=== PATIENT | female | born 1960 | race Caucasian/White ===

== ENCOUNTER 2019-08-31 10:10 | Emergency (ER) | payer BC, SELFPAY ==
[2019-08-31 10:10] VITALS: BP 161/80; PULSE 88; RESP 18; TEMP 36.3; O2SAT 99
--- NOTE | 2019-08-31 10:24 | PC.NURSE ---
As noted in triage, ++ swelling superior to uvula. No swelling to epiglottis.
--- NOTE | 2019-08-31 10:24 | ED.URI ---
HPI - URI/Sore Throat General Chief Complaint: Upper Respiratory Symptoms Stated Complaint: sent from [facility], sore throat, trouble breathing Time Seen by Provider: 08/31/19 10:18 Source: patient Mode of arrival: Ambulatory Limitations: no limitations History of Present Illness HPI Narrative: Patient is 58-year-old female who presents from the walk-in clinic for difficulty breathing sore throat. She says she feels like her mouth is swollen. She actually does have swelling of her uvula she is managing her own secretions she denies any change in her voice. She has had any fever chills or cough. She currently denies any neck discomfort. She denies any tongue swelling she has no history of hypertension not on an ULI-inhibitor she did take naproxen prior to arrival. She overall feels like it's getting worse MD Complaint: sore throat Relieving factors: nothing Related Data Previous Rx's Medication Instructions Recorded nitrofurantoin monohyd/m-cryst 100 mg PO Q12H #10 cap 11/12/16 [Macrobid] phenazopyridine [Pyridium] 200 mg PO TID #10 tab 11/12/16 phenazopyridine [Pyridium] 200 mg PO TID #10 tab 11/26/16 sulfamethoxazole-trimethoprim 0 PO BID #20 tab 11/26/16 prednisone 40 mg PO DAILY #10 tab 08/31/19 Allergies Allergy/AdvReac Type Severity Reaction Status Date / Time codeine [CODEINE] AdvReac Severe NAUSEA/VOMI Verified 08/31/19 11:54 TING Review of Systems Review of Systems ROS Unobtainable: All systems reviewed & are unremarkable except as noted in HPI and below Constitutional Constitutional: Denies chills, Denies fever(s), Denies lethargy and Denies weakness Eyes Eyes: Denies change in vision, Denies eye discharge, Denies irritation and Denies loss of vision ENT Ears, Nose, Mouth, and Throat: Reports as per HPI Cardiovascular Cardiovascular: Denies chest pain, Denies irregular heart rhythm, Denies lightheadedness, Denies palpitations, Denies dyspnea, Denies dyspnea on exertion and Denies orthopnea Respiratory Respiratory: Denies cough, Denies dyspnea, Denies dyspnea on exertion and Denies wheezing Gastrointestinal Gastrointestinal: Denies abdominal pain, Denies change in bowel habits, Denies diarrhea, Denies nausea and Denies vomiting Genitourinary Genitourinary: Denies hematuria, Denies flank pain, Denies urinary incontinence and Denies urinary urgency Musculoskeletal Musculoskeletal: Denies back pain, Denies muscle weakness, Denies numbness and Denies tingling Integumentary/Breasts Skin/Breast: Denies pruritus, Denies erythema, Denies rash and Denies wounds Neurologic Neurologic: Denies loss of vision, Denies numbness, Denies tingling and Denies weakness Endocrine Endocrine: Denies palpitations Allergic/Immunologic Allergic/Immunologic: Denies wheezing Patient History Surgical History Status post delivery Social History Smoking Status: Never smoker Smoking Status: Never smoker alcohol intake frequency: 0-2 drinks per day Substance Use Type: does not use Exam Initial Vital Signs Initial Vital Signs: Vital Signs Temperature 97.4 F L 08/31/19 10:10 Pulse Rate 88 08/31/19 10:10 Respiratory Rate 18 08/31/19 10:10 Blood Pressure 161/80 H 08/31/19 10:10 Pulse Oximetry 99 08/31/19 10:10 GENERAL: Well-appearing, well-nourished and in no acute distress. HEENT: Head atraumatic,EOMI, pupils reactive, face symmetric, moist mucous membranes PHARYNX: Uvula is slightly edematous and mildly erythematous however airway appears patent no muffled voice managing own secretions tonsils are not identified CARDIOVASCULAR: Regular rate and rhythm without murmurs, rubs or gallops. RESPIRATORY: Breath sounds equal bilaterally, no wheezes rales or rhonchi. ABDOMEN: Soft, nontender. Normoactive bowel sounds all 4 quadrants. No guarding or rebound. EXTREMITIES: Normal range of motion, no clubbing or edema. Neurovascularly intact NEUROLOGICAL: Alert and oriented x4.Normal gait and speech. Cranial nerves II through XII grossly intact. SKIN: Warm, dry, no laceration, no petechiae, no rashes or lesions. Course Orders Ordered: ED Orders 08/31/19 10:51 Throat Culture Stat 08/31/19 11:48 XR soft tissue neck Stat 08/31/19 11:50 Basic Metabolic Panel Stat Complete Blood Count AUTO DIFF Stat 08/31/19 13:00 CT soft tissue neck w con Stat 08/31/19 13:22 Respiratory Panel (Film Array) Stat Discontinued Medications Dexamethasone (Decadron) 10 mg PO NOW ONE Stop: 08/31/19 10:29 Last Admin: 08/31/19 10:54 Dose: 10 mg Documented by: MARIVEL Dexamethasone (Decadron) 10 mg IV NOW ONE Stop: 08/31/19 11:42 Last Admin: 08/31/19 11:54 Dose: 10 mg Documented by: LELE Diphenhydramine HCl (Benadryl) 25 mg IV NOW ONE Stop: 08/31/19 11:42 Last Admin: 08/31/19 11:55 Dose: 25 mg Documented by: LELE Epinephrine HCl (Adrenalin) 0.5 mg IM NOW ONE Stop: 08/31/19 11:42 Last Admin: 08/31/19 11:55 Dose: 0.5 mg Documented by: LELE Sodium Chloride (Normal Saline 0.9%) 1,000 mls @ 1,000 mls/hr IV BOLUS ONE Stop: 08/31/19 12:52 Last Infusion: 08/31/19 12:22 Dose: 0 mls/hr Documented by: Admin: 08/31/19 11:54 Dose: 1,000 mls/hr Documented by: LELE Vital Signs Vital signs: Vital Signs - 8 hr 08/31/19 10:10 08/31/19 11:15 08/31/19 12:11 Temperature 97.4 F L Pulse Rate 88 71 86 Respiratory Rate 18 17 20 Blood Pressure 161/80 H Blood Pressure [Left Arm] 140/63 159/78 H Pulse Oximetry 99 100 100 08/31/19 13:00 Temperature Pulse Rate 96 H Respiratory Rate 17 Blood Pressure Blood Pressure [Left Arm] 127/73 Pulse Oximetry 94 MDM - URI/Sore Throat Lab Data Attestation: I reviewed the patient's lab results. Result diagrams: 08/31/19 11:50 08/31/19 11:50 Labs: Lab Results 08/31/19 08/31/19 Range/Units 11:50 11:50 WBC 8.7 (4.5-11.0) X10^3/uL RBC 4.66 (4.0-5.2) X10^6/uL Hgb 14.6 (12.0-16.0) g/dL Hct 42.6 (36-46) % MCV 91.5 (80-100) fL MCH 31.3 (26-34) PG MCHC 34.2 (30-36) % RDW 13.4 (11.6-14.8) % Plt Count 230 (150-400) X10^3/uL Neut % (Auto) 79.5 H (50-75) % Lymph % (Auto) 10.0 L (25-40) % Hale % (Auto) 9.0 (3-14) % Eos % (Auto) 0.9 L (2-4) % Baso % (Auto) 0.6 (0-2) % Neut # (Auto) 6900 (5171-3447) /uL Lymph # (Auto) 900 L (5577-8098) /uL Hale # (Auto) 800 (0-900) /uL Eos # (Auto) 100 (0-450) /uL Baso # (Auto) 100 (0-100) /uL Sodium 139 (137-145) mmol/L Potassium 5.2 H (3.4-5.1) mmol/L Chloride 105 (98-107) mmol/L Carbon Dioxide 24 (22-32) mmol/L BUN 12 (7-17) mg/dL Creatinine 0.60 (0.52-1.04) mg/dL Estimated GFR > 60.0 (>60) mL/min BUN/Creatinine Ratio 20.0 (6-22) Glucose 86 (70-100) mg/dL Calcium 9.3 (8.4-10.2) mg/dL Point of Care Testing Rapid Strep A Negative Imaging Data XR soft tissue: Radiologist's Impression: PROCEDURE: XR SOFT TISSUE NECK INDICATIONS: possible epiglottitis TECHNIQUE: 2 views of the neck were acquired. COMPARISON: None. FINDINGS: Airway: The airway appears patent. Soft tissues: In this patient with this given history, scrutiny is given to the epiglottis. Epiglottis is mildly thickened. Prevertebral soft tissues are normal in thickness. The aryepiglottic folds appear normal. No soft tissue gas. Bones: No suspicious bony lesions. Visualized cervical spine is normally aligned. Age-appropriate bony degenerative changes are seen of the cervical spine. IMPRESSION: Mild thickening of the epiglottis can be seen. If clinically appropriate, please consider a CT of the neck with contrast for further evaluation. Note: Findings and recommendations discussed by telephone with Dr. Decker at 12:54 PM [place] time on August 31, 2019. Dictated by: Ton Estevez M.D. on 08/31/2019 at 11:50 CT soft tissue: Radiologist's Impression: PROCEDURE: CT SOFT TISSUE NECK W CON INDICATIONS: eppiglotitis TECHNIQUE: After the administration of intravenous contrast, 3.0 mm axial sections acquired from the sella to the aortic arch. Additional oblique axial 3.0 mm sections acquired through the pharynx. 3 mm thick coronal and sagittal reformats were generated. For radiation dose reduction, the following was used: automated exposure control. COMPARISON: [facility], , XR SOFT TISSUE NECK, 08/31/2019, 12:21. FINDINGS: Image quality: Excellent. Lymph nodes: No enlarged lymph nodes seen throughout the neck. Vessels: Visualized vasculature appears patent. Neck spaces: In this patient with this given history, scrutiny is given to the epiglottis. On these images, the epiglottis does not appear abnormally thickened. No significant edema can be seen within the epiglottis or within the surrounding soft tissues. The oropharynx, nasopharynx, and pharynx demonstrate no mucosal lesions. The vocal cords, false vocal cords, pyriform sinuses, vallecula, and tongue base all appear normal. Extramucosal spaces appear unremarkable. Glands: The parotid and submandibular glands appear normal. Thyroid gland demonstrates no significant CT abnormality. Miscellaneous: Visualized brain and orbits appear normal. Lung apices appear clear. Superficial soft tissues appear normal. Bones: No suspicious bony lesions. Visualized sinuses and mastoids appear unremarkable. Age-appropriate bony degenerative changes are seen, which are most prominent at the C6-C7 level. IMPRESSION: Normal epiglottis. The previously seen apparent thickening of the epiglottis on plain film is now regarded to be artifactual. Dictated by: Ton Estevez M.D. on 08/31/2019 at 12:58 MDM Narrative Medical decision making narrative: 11:35 a.m. patient is re-evaluated after Decadron she now states that she feels like she has more swelling in her throat. Uvula is re-examined it is relatively the same. With some obvious swelling but doesn't appear to have any airway compromise strep was negative. At this time will treat her for allergic reaction possible epiglottitis. Soft tissue x-ray neck does show mild thickening and possible epiglottitis. Decision for CT. Patient's symptoms significantly improved after epinephrine and Benadryl. She continues to drink multiple glasses of water in complaining of thirst. No airway compromise. CT fortunately is negative and shows normal epiglottitis. At this time this is likely viral related and uvulitis. I discussed all findings with the patient and , Education has been performed regarding treatment plan, diagnosis, warning signs and symptoms and all concerns have been addressed. Verbally agree with and understood all of the above. Discharge Plan Departure Patient Disposition: Home Clinical Impression: Uvulitis Instructions: DI for Uvulitis Activity Restrictions/Additional Instructions: *You have been diagnosed with uvulitis *What to do: At this time there is no sign of airway compromise on your CT scan. your uvula is slightly swollen. No indication for antibiotics at this time strep was negative *Continue to take medications as directed Prednisone 40 mg once a day for 5 days Benadryl 25 mg every 6 hours for next 24 hours. nest dose at 6pm *Follow up with your primary care provider in 2-3 days *Return to ER if you should have increased difficulty swallowing, needing to spit out her own secretions, difficulty breathing, worsening cough or any new, worsening or concerning symptoms Prescriptions: New prednisone 20 mg tablet 40 mg PO DAILY Qty: 10 RF: 0 No Action phenazopyridine [Pyridium] 200 MG tablet 200 mg PO TID Qty: 10 RF: 0 nitrofurantoin monohyd/m-cryst [Macrobid] 100 MG capsule 100 mg PO Q12H Qty: 10 RF: 0 sulfamethoxazole-trimethoprim 800 MG/160 MG tablet 0 PO BID Qty: 20 RF: 0 phenazopyridine [Pyridium] 200 MG tablet 200 mg PO TID Qty: 10 RF: 0 Referrals: [facility] [Provider Group]
[2019-08-31] MEDS: DEXAMETHASONE 10 MG/ML VIAL PO (10:54)
[2019-08-31 11:15] VITALS: BP 140/63; PULSE 71; RESP 17; O2SAT 100
--- NOTE | 2019-08-31 11:48 | DI.RAD.S_ITS ---
PROCEDURE: XR SOFT TISSUE NECK INDICATIONS: possible epiglottitis TECHNIQUE: 2 views of the neck were acquired. COMPARISON: None. FINDINGS: Airway: The airway appears patent. Soft tissues: In this patient with this given history, scrutiny is given to the epiglottis. Epiglottis is mildly thickened. Prevertebral soft tissues are normal in thickness. The aryepiglottic folds appear normal. No soft tissue gas. Bones: No suspicious bony lesions. Visualized cervical spine is normally aligned. Age-appropriate bony degenerative changes are seen of the cervical spine. IMPRESSION: Mild thickening of the epiglottis can be seen. If clinically appropriate, please consider a CT of the neck with contrast for further evaluation. Note: Findings and recommendations discussed by telephone with Dr. Decker at 12:54 PM [place] time on August 31, 2019. Dictated by: Ton Estevez M.D. on 08/31/2019 at 11:50 Approved by: Ton Estevez M.D. on 08/31/2019 at 11:55
[2019-08-31] MEDS: SODIUM CHLORIDE 0.9% 1,000 ML 1000 ML IV (11:54)
[2019-08-31] MEDS: DEXAMETHASONE 10 MG/ML VIAL IV (11:54)
[2019-08-31] MEDS: diphenhydrAMINE 50 MG/ML VIAL 25 MG IV (11:55)
[2019-08-31] MEDS: EPINEPHrine 1 MG/ML 0.5 MG IM (11:55)
[2019-08-31 11:56] LABS: Add Manual Diff / Slide Review NO; Basophils Absolute Auto 100 /uL (0-100); Basophils Percent Auto 0.6 % (0-2); Eosinophils Absolute Auto 100 /uL (0-450); Eosinophils Percent Auto 0.9 % (2-4); Hematocrit 42.6 % (36-46); Hemoglobin 14.6 g/dL (12.0-16.0); Lymphocytes Absolute Auto 900 /uL (1100-4500); Mean Corpuscular HGB Conc 34.2 % (30-36); Mean Corpuscular Hemoglobin 31.3 PG (26-34); Mean Corpuscular Volume 91.5 fL (80-100); Monocytes Absolute Auto 800 /uL (0-900); Neutrophils Absolute Auto 6900 /uL (1500-7000); Neutrophils Percent Auto 79.5 % (50-75); Platelet Count 230 X10^3/uL (150-400); Red Blood Cell Count 4.66 X10^6/uL (4.0-5.2); Red Cell Distribution Width 13.4 % (11.6-14.8); White Blood Cell Count 8.7 X10^3/uL (4.5-11.0)
[2019-08-31 12:08] LABS: Blood Urea Nitrogen 12 mg/dL (7-17); Calcium 9.3 mg/dL (8.4-10.2); Carbon Dioxide 24 mmol/L (22-32); Chloride 105 mmol/L (98-107); Estimated Glomerular Filt Rate > 60.0 mL/min (>60); Glucose 86 mg/dL (70-100); HEMOLYSIS 109 (0-50); Potassium 5.2 mmol/L (3.4-5.1); Sodium 139 mmol/L (137-145)
[2019-08-31 12:11] VITALS: BP 159/78; PULSE 86; RESP 20; O2SAT 100
[2019-08-31 13:00] VITALS: BP 127/73; PULSE 96; RESP 17; O2SAT 94
--- NOTE | 2019-08-31 13:00 | DI.CT.S_ITS ---
PROCEDURE: CT SOFT TISSUE NECK W CON INDICATIONS: eppiglotitis TECHNIQUE: After the administration of intravenous contrast, 3.0 mm axial sections acquired from the sella to the aortic arch. Additional oblique axial 3.0 mm sections acquired through the pharynx. 3 mm thick coronal and sagittal reformats were generated. For radiation dose reduction, the following was used: automated exposure control. COMPARISON: [facility], CR, XR SOFT TISSUE NECK, 08/31/2019, 12:21. FINDINGS: Image quality: Excellent. Lymph nodes: No enlarged lymph nodes seen throughout the neck. Vessels: Visualized vasculature appears patent. Neck spaces: In this patient with this given history, scrutiny is given to the epiglottis. On these images, the epiglottis does not appear abnormally thickened. No significant edema can be seen within the epiglottis or within the surrounding soft tissues. The oropharynx, nasopharynx, and pharynx demonstrate no mucosal lesions. The vocal cords, false vocal cords, pyriform sinuses, vallecula, and tongue base all appear normal. Extramucosal spaces appear unremarkable. Glands: The parotid and submandibular glands appear normal. Thyroid gland demonstrates no significant CT abnormality. Miscellaneous: Visualized brain and orbits appear normal. Lung apices appear clear. Superficial soft tissues appear normal. Bones: No suspicious bony lesions. Visualized sinuses and mastoids appear unremarkable. Age-appropriate bony degenerative changes are seen, which are most prominent at the C6-C7 level. IMPRESSION: Normal epiglottis. The previously seen apparent thickening of the epiglottis on plain film is now regarded to be artifactual. Dictated by: Ton Estevez M.D. on 08/31/2019 at 12:58 Approved by: Ton Estevez M.D. on 08/31/2019 at 13:01
[2019-08-31 14:15] VITALS: BP 128/69; PULSE 81; RESP 18; O2SAT 100
[2019-08-31 15:39] LABS: Adenovirus Not Detected (Not Detect); Bordetella pertussis Not Detected (Not Detect); Chlamydophila pneumoniae Not Detected (Not Detect); Coronavirus 229E Not Detected (Not Detect); Coronavirus HKU1 Not Detected (Not Detect); Coronavirus NL 63 Not Detected (Not Detect); Coronavirus OC43 Not Detected (Not Detect); Human Metapneumovirus Not Detected (Not Detect); Human Rhinovirus/Enterovirus Not Detected (Not Detect); Influenza A Not Detected (Not Detect); Influenza B Not Detected (Not Detect); Mycoplasma pneumoniae Not Detected (Not Detect); Parainfluenza Virus 1 Not Detected (Not Detect); Parainfluenza Virus 2 Not Detected (Not Detect); Parainfluenza Virus 3 Not Detected (Not Detect); Parainfluenza Virus 4 Not Detected (Not Detect); Respiratory Syncytial Virus Detected (Not Detect)
== END 2019-08-31 14:36 | disposition home or self-care (01) ==
PROVIDERS: Emergency Provider Emergency Medicine
DX: K12.2 Cellulitis and abscess of mouth (principal)
CPT/HCPCS: 36415; 70360; 70491; 80048; 85025; 87070; 87633; 87880; 96372; 96374; 96375; 99284; 99285; J0171; J1100; J1200

== ENCOUNTER → 2020-02-07 08:31 | Outpatient (CLI) | payer BC, SELFPAY ==
--- NOTE | 2020-02-07 | DI.CT.S_ITS ---
PROCEDURE: CT KIDNEY URETER BLADDER (KUB) INDICATIONS: Gross hematuria TECHNIQUE: Noncontrast 5 mm thick sections acquired from the diaphragms to the symphysis. 5 mm thick coronal and sagittal reformats were then performed. For radiation dose reduction, the following was used: automated exposure control, adjustment of mA and/or kV according to patient size. COMPARISON: None. FINDINGS: Image quality: Excellent. Lung bases: Lung bases are clear. Heart size is normal. Urinary system: Both kidneys are normal in size. No kidney stones. No hydronephrosis or perinephric fat stranding. Both ureters appear non-dilated throughout their expected courses. Bladder wall thickness is normal; no calcified bladder stones. Other solid organs: Liver is normal in size. 10 x 9 mm hypodense area involving hepatic dome is seen. Additional small well-circumscribed hypodense areas also seen scattered throughout liver parenchyma and measures up to 1.7 x 1.6 cm in size in inferior right hepatic lobe measures fluid density suggestive of these being hepatic cysts. Gallbladder is within normal limits. Pancreas is normal in contours. Spleen is normal in size. No adrenal nodules. Peritoneum and bowel: Unenhanced bowel loops demonstrate normal wall thickness and caliber. No free fluid or air. Sigmoid diverticulosis is seen, no CT evidence of acute diverticulitis. Small hiatal hernia is noted. Nodes and vessels: No retroperitoneal or mesenteric adenopathy by size criteria. Aorta and inferior vena cava are normal in caliber. Abdominal wall: Right anterolateral lower abdominal wall hernia is seen containing a segment of bowel loop with abdominal wall defect measures up to 3 cm in width. No signs of incarceration. Pelvis: No free pelvic fluid. No inguinal hernias or adenopathy. Patient is status post hysterectomy. Bones: No suspicious bony lesions. No vertebral body compression fractures. IMPRESSION: 1. No renal stone hydronephrosis is seen. No gross abnormality is seen in bilateral ureters and urinary bladder. 2. Right lateral lower abdominal wall defect measures 3 cm in width containing fat and a segment of bowel. No evidence of incarceration. 3. No bowel obstruction. No free fluid or free air. Sigmoid diverticulosis, no CT evidence of acute diverticulitis. 4. Numerous well-circumscribed hypodense areas scattered throughout liver parenchyma likely represent hepatic cysts. Dictated by: Colton Pepe M.D. on 02/07/2020 at 10:25 Approved by: Colton Pepe M.D. on 02/07/2020 at 10:36
== END ==
PROVIDERS: PCP Family Medicine; Referring Provider Family Medicine; Visit Provider Family Medicine
DX: R31.0 Gross hematuria (principal); K43.9 Ventral hernia without obstruction or gangrene; K57.30 Diverticulosis of large intestine without perforation or abscess without bleeding; Z90.710 Acquired absence of both cervix and uterus
CPT/HCPCS: 74176

== ENCOUNTER → 2020-02-27 11:34 | Outpatient (CLI) | payer BC, SELFPAY ==
[2020-02-29 06:55] LABS: COVID19 Sendout Not Detected (Not Detect)
== END ==
PROVIDERS: PCP Family Medicine; Visit Provider Nurse Practitioner
DX: Z01.812 Encounter for preprocedural laboratory examination (principal)
CPT/HCPCS: 87635

== ENCOUNTER 2020-02-29 10:49 | Day surgery (SDC) | payer BC, SELFPAY ==
[2020-02-22 14:45] VITALS: BMI 31.1
[2020-02-29] VITALS (7 sets, daily range): BP systolic 105–124; BP diastolic 58–71; PULSE 73–92; RESP 16–20; TEMP 36.3–37.2; O2SAT 98–100; BMI 31.0
--- NOTE | 2020-02-29 11:23 | PM.PREOP ---
Pre-operative Note COVID-19 COVID-19 status: Negative Result date/Date tested (Pos, Neg/Pending): 02/27/20 Interval Note History & Physical reviewed/Exam performed by Physician: Yes Changes to H&P: No
[2020-02-29] MEDS: LACTATED RINGERS 1,000 ML 42 ML IV ×2 (11:26→15:00)
[2020-02-29] MEDS: CEFAZOLIN 2 GM/100 ML FROZ.PIGGY IV (13:40)
--- NOTE | 2020-02-29 13:56 | SUR.OPER ---
Supine on padded OR bed, head on pillow, arms secured on padded arm boards at <90 degrees abduction, legs uncrossed, safety belt at thigh, tape over blanket over lower legs.
[2020-02-29] MEDS: BUPIVACAINE 0.25% W/ EPI 30 ML VIAL INJ (14:08)
[2020-02-29] MEDS: BUPIVACAINE LIPOSOME 266 MG/20 ML VIAL INJ (14:13)
--- NOTE | 2020-02-29 15:25 | P.OP_ITS ---
Operative Date/Time/Diagnoses Date of procedure: 02/29/20 Time of procedure: 15:25 Pre-op diagnosis: right Spigelian hernia Post-op diagnosis: same Procedure & Clinicians Procedure: Open repair of incarcerated spigelian hernia with mesh Same procedure as scheduled: Yes Indications: Symptomatic right spigelian hernia Surgeon: Saida Hartley Click Yes if Unassisted: Yes Anesthesia Type: General Operative Notes Findings: 3cm x 4cm spigelian hernia with incarcerated hernia sac Specimen(s): none sent Prosthetic devices, grafts, tissues, transplants, or devices: Macroporous lightweight mesh Estimated Blood Loss (mL): 1 Procedure in detail: The patient was brought into the OR, placed supine on the OR table, and appropriate preoperative antibiotics were given. Sequential compression devices were placed on both legs and turned on. General anesthesia was induced and the patient was intubated with an LMA by the anesthesiologist. The right lower abdomen and groin were prepped and draped in sterile fashion for right lower quadrant incision. A surgical time out was conducted. Local anesthetic was infiltrated into the skin and a 15 blade was used to make an oblique 8cm incision overlying the semilunar line. Dissection was carried down to through the subcutaneous fat and derrek's fascia. A bulging hernia sac was seen beneath an attenuated apneurosis of the external oblique muscle. The aponeurosis was incised and a thin layer of periteonum covering bowel was seen bulging through the Spigelian defect at the junction of the rectus abdominus muscle and the oblique muscles laterally. The bulging sac was dissected free from the surrounding structures and reduced into the abdomen. The edges of the fascia were cleared of fat and peritoneum. I then closed the defect with 0- Ethibond suture using interrupted figure of 8's. The fascia was infiltrated with 40mL of 0.25% Bupivicaine with epi, and Exparel 20mL. A [id number] Macroporous polypropelene mesh was then placed in the defect and secured in place with 0-Ethibond. The aponeurosis of the external oblique was then closed over the mesh with 3-0 Vicryl running suture. The derrek's fascia and dermis were closed with 3-0 Vicryl. The skin was closed with subcuticular 4-0 Monocryl suture. The remaining local anesthetic was given in the skin and soft tissue for a total of 60mL for the case. The skin was closed with running 4-0 Monocryl subcuticular stitch. The skin edges were sealed with Dermabond. The patient was awakened from anesthesia and extubated. She tolerated the procedure well. Needle, sponge and instrument counts were correct x 2. An abdominal binder was applied. The patient was transferred to PACU in stable condition. Complications: none Post-operative Condition: stable Disposition: PACU
[2020-02-29] MEDS: hydrOXYzine 50 MG/ML INJ 25 MG IM (15:38)
[2020-02-29] MEDS: ONDANSETRON 4 MG/2 ML INJ IV (15:38)
== END 2020-02-29 16:35 | disposition home or self-care (01) ==
PROVIDERS: PCP Family Medicine; Referring Provider Surgery; Visit Provider Surgery
PROC: (CPT 49560; principal; 2020-02-29 12:15)
DX: K43.9 Ventral hernia without obstruction or gangrene (principal); K21.9 Gastro-esophageal reflux disease without esophagitis; G25.81 Restless legs syndrome
CPT/HCPCS: 49560; C1781; C9290; J0171; J0690; J2250; J2405; J2704; J3010; J3410

== ENCOUNTER → 2022-02-21 10:43 | Outpatient (CLI) | payer BC, SELFPAY ==
--- NOTE | 2022-02-21 | DI.RAD.S_ITS ---
PROCEDURE: XR FINGER RT MIN 2V INDICATIONS: Unspecified injury of unspecified wrist, hand and finger(s), TECHNIQUE: AP hand, 2 views of the 5th finger(s) acquired. COMPARISON: None. FINDINGS: Bones: No fractures or dislocations. No suspicious bony lesions. Multifocal joint space narrowing and periarticular osteophyte formation at the scaphoid trapezial, 1st carpometacarpal joints, as well as the interphalangeal joints of the digits. Soft tissues: No suspicious soft tissue calcifications. IMPRESSION: Osteoarthritis. No acute fracture. No osseous lesion. If symptoms and/or clinical suspicion for pathology persist, further assessment with repeat, or advanced imaging (e.g., CT, MRI, or bone scan) may be helpful for further assessment. Dictated by: Valentino Heck M.D. on 02/21/2022 at 11:47 Approved by: Valentino Heck M.D. on 02/21/2022 at 11:47
== END ==
PROVIDERS: PCP Family Medicine; Referring Provider Family Medicine; Visit Provider Family Medicine
DX: S69.91XA Unspecified injury of right wrist, hand and finger(s), initial encounter (principal); M19.041 Primary osteoarthritis, right hand
CPT/HCPCS: 73140

== ENCOUNTER → 2022-11-26 14:18 | Outpatient (CLI) | payer BC, SELFPAY ==
--- NOTE | 2022-11-26 | DI.RAD.S_ITS ---
PROCEDURE: XR CHEST 2V INDICATIONS: chronic cough TECHNIQUE: 2 views of the chest were acquired. COMPARISON: None. FINDINGS: Surgical changes and devices: None. Lungs and pleura: Lungs are clear. No pleural effusions or pneumothorax. Mediastinum: Mediastinal contours are normal. Heart size is normal. Bones and chest wall: No suspicious bony abnormalities. Soft tissues appear unremarkable. IMPRESSION: Normal two view chest x-ray Approved by: Diego Kingston M.D. on 11/26/2022 at 19:07
== END ==
PROVIDERS: PCP Family Medicine; Referring Provider Family Medicine; Visit Provider Family Medicine
DX: R05.3 Chronic cough (principal)
CPT/HCPCS: 71046

== ENCOUNTER → 2024-01-26 16:07 | Outpatient (CLI) | payer BC, SELFPAY | LOC: RESP 16:09 | PROVIDERS: PCP Family Medicine; Referring Provider Internal Medicine Cardiovascular Disease; Visit Provider Internal Medicine Cardiovascular Disease | DX: R06.2 Wheezing (principal) | CPT/HCPCS: 94060; 94726; 94729 ==

== ENCOUNTER → 2024-03-02 13:45 | Outpatient (CLI) | payer BC, SELFPAY ==
--- NOTE | 2024-03-02 13:46 | DI.NM.S_ITS ---
PROCEDURE: NM EXERCISE TREADMILL NON NUC COMPARISON: None. INDICATIONS: Palpitations FINDINGS: Total exercise time was 7 minutes 59 seconds. Test was terminated secondary to fatigue. Maximal heart rate obtained is 189 bpm which is 102% of max predicted heart rate. Maximum blood pressure of 156/84[place] [address]. RODRIGUEZ of -22%. 10.1 METS. No obvious ischemic changes were noted. However significant baseline artifact was noted on leads V5 and V2 during the stress portion thereby decreasing accuracy of this test. No ventricular arrhythmias noted but PACs were present during the stress and early recovery phase. No chest pains voiced. Normal heart rate and blood pressure response to exercise. IMPRESSION: 1. Non-diagnostic exercise treadmill stress test due to significant baseline artifact but no obvious ischemia noted. 2. Above average exercise tolerance. Dictated by: Sandip Pepe M.D. on 03/02/2024 at 16:51 Approved by: Sandip Pepe M.D. on 03/02/2024 at 16:54
--- NOTE | 2024-03-02 13:46 | DI.ECHO.S_ITS ---
[facility] : : [address] : : [place] : : [id number] : : Phone: [phone] Echocardiogram Report + + :Name: PARVEZ HORN Study Date: 03/02/2024 Height: 63 in : :[facility] ReadingLocation: Weight: 181 lb : : Gender: Female BSA: 1.9 m2 : :: 1960 Age: 63 yrs BP: 137/95 mmHg: :Reason For Study: PALPITATIONS : :Ordering Physician: REZA, : :KALEY Carter Performed By: Sayra Tarango : :Referring: KALEY LAWLER : + + Interpretation Summary The ejection fraction is estimated to be 55-60%. Diastolic function could not be accurately assessed due to unobtainable data. The left atrium is borderline dilated. The right ventricle is normal in size and function. There is mild to moderate aortic regurgitation. Pulmonary artery pressures cannot be estimated because of the lack of a measurable TR jet velocity but the IVC suggests a CVP of around 3 mmHg. Procedure: A two-dimensional transthoracic echocardiogram with color flow and Doppler was performed. The study quality was technically adequate. There is no prior echocardiogram noted for this patient. The patient was in sinus rhythm with heart rates between 59-70 bpm during the exam. Left Ventricle: The left ventricle is normal in size and wall thickness. The ejection fraction is estimated to be 55-60%. Septal motion is consistent with conduction abnormality. Diastolic function could not be accurately assessed due to unobtainable data. Right Ventricle: The right ventricle is normal in size and function. Atria: The left atrium is borderline dilated. Right atrial size is normal. The interatrial septum is thin and hypermobile. Mitral Valve: The mitral valve is normal in structure and function. There is trace mitral regurgitation. Aortic Valve: The aortic valve is trileaflet. The aortic valve opens well. There is no aortic valve stenosis. There is mild to moderate aortic regurgitation. Tricuspid Valve: The tricuspid valve is normal in structure and function. There is trace tricuspid regurgitation. Pulmonary artery pressures cannot be estimated because of the lack of a measurable TR jet velocity but the IVC suggests a CVP of around 3 mmHg. Pulmonic Valve: The pulmonic valve leaflets are thin and pliable; valve motion is normal. There is trace pulmonic regurgitation. Great Vessels: The aortic root is normal size. The dimensions of the ascending aorta are normal. The IVC is of normal diameter and collapses greater than 50% with a sniff. This suggests a low right atrial pressure of 3 mm Hg. Pericardium/ Pleura There is no pericardial effusion. There is no pleural effusion. MMode/2D Measurements & Calculations LVIDd: 4.9 cm LVOT diam: 2.0 cm LVIDs: 3.7 cm Ao root diam: 3.3 cm FS: 24.5 % asc Aorta Diam: 3.4 cm IVSd: 0.96 cm Ao Arch Diam (Prox Trans): 2.2 cm LVPWd: 0.89 cm LV morales. diameter/BSA (cm/m^2): 2.6 LV sys. diameter/BSA (cm/m^2): 2.0 LA A2 area: 23.1 cm2 RA long axis: 4.5 cm LA A4 area: 17.1 cm2 RA area: 12.0 cm2 LA length (vol): 5.3 cm RA vol: 26.8 ml LA vol: 63.1 ml RA : 14.5 ml/m2 LA vol index: 34.1 ml/m2 IVC diam: 1.1 cm RVD1 (basal): 2.7 cm RVD2 (mid): 2.1 cm TAPSE: 1.8 cm Doppler Measurements & Calculations Ao V2 max: 139.6 cm/sec LVOT Max Sheldon: 84.3 cm/sec Ao V2 mean: 96.3 cm/sec LV V1 max P.8 mmHg Ao max P.8 mmHg LV V1 VTI: 21.1 cm Ao mean P.1 mmHg DAISY(I,D): 2.1 cm2 Ao V2 VTI: 32.6 cm DAISY(V,D): 2.0 cm2 sev ratio: 0.65 DAISY indexed to BSA (cm^2/m^2): 1.1 AI P1/2t: 519.6 msec AI dec slope: 276.6 cm/sec2 MV E max sheldon: 55.5 cm/sec PA V2 max: 88.2 cm/sec MV A max sheldon: 86.8 cm/sec PA V2 mean: 65.3 cm/sec MV E/A: 0.64 PA mean P.8 mmHg Med Peak E' Sheldon: 4.3 cm/sec PA pr(Accel): 43.0 mmHg E/E' med: 12.8 Lat Peak E' Sheldon: 8.2 cm/sec E/E' lat: 6.8 E/e' average: 9.8 MV dec time: 0.31 sec SVLVOT): 69.4 ml Reading Physician:03:43 PM
== END ==
PROVIDERS: PCP Family Medicine; Referring Provider Internal Medicine Cardiovascular Disease; Visit Provider Internal Medicine Cardiovascular Disease
DX: I35.1 Nonrheumatic aortic (valve) insufficiency (principal); R00.2 Palpitations
CPT/HCPCS: 93017; 93306

== ENCOUNTER → 2024-12-20 14:42 | Outpatient (CLI) | payer BC, SELFPAY ==
[2024-12-20 15:53] LABS: Add Manual Diff / Slide Review NO; Basophils Absolute Auto 0 /uL (0-100); Basophils Percent Auto 0.5 % (0-2); Eosinophils Absolute Auto 100 /uL (0-450); Eosinophils Percent Auto 2.5 % (2-4); Hematocrit 40.4 % (36-46); Hemoglobin 13.6 g/dL (12.0-16.0); Lymphocytes Absolute Auto 1400 /uL (1100-4500); Lymphocytes Percent Auto 27.6 % (25-40); Mean Corpuscular HGB Conc 33.7 % (30-36); Mean Corpuscular Hemoglobin 31.4 PG (26-34); Mean Corpuscular Volume 93.4 fL (80-100); Monocytes Absolute Auto 400 /uL (0-900); Monocytes Percent Auto 8.5 % (3-14); Neutrophils Absolute Auto 3200 /uL (1500-7000); Neutrophils Percent Auto 60.9 % (50-75); Platelet Count 254 X10^3/uL (150-400); Red Blood Cell Count 4.33 X10^6/uL (4.0-5.2); Red Cell Distribution Width 13.5 % (11.6-14.8); White Blood Cell Count 5.2 X10^3/uL (4.5-11.0)
[2024-12-20 16:31] LABS: Alanine Aminotransferase 31 IU/L (<35); Albumin 4.3 g/dL (3.5-5.0); Albumin Globulin Ratio 1.5 (1.0-2.8); Alkaline Phosphatase 100 U/L (38-126); Aspartate Aminotransferase 33 IU/L (14-36); BUN Creatinine Ratio 22.4 (6-22); Bilirubin Total 0.8 mg/dL (0.2-1.3); Blood Urea Nitrogen 15 mg/dL (7-17); Calcium 9.2 mg/dL (8.4-10.2); Carbon Dioxide 28 mmol/L (22-32); Chloride 102 mmol/L (98-107); Cholesterol 253 mg/dL (140-199); Estimated Glomerular Filt Rate > 60 mL/min (>60); Globulin 2.9 g/dL (1.7-4.1); Glucose 84 mg/dL (70-99); HDL Cholesterol 57 mg/dL (40-60); HEMOLYSIS < 15 (0-50); LDL Cholesterol Calculated 184 mg/dL (<100); Potassium 4.7 mmol/L (3.4-5.1); Sodium 136 mmol/L (137-145); Total Protein 7.2 g/dL (6.3-8.2); Triglycerides 58 mg/dL (35-150)
[2024-12-20 16:57] LABS: TSH w/ Reflex to FT4 < 0.02 uIU/mL (0.47-4.68)
[2024-12-20 20:22] LABS: Free T4, Direct Thyroxine 1.16 ng/dL (0.78-2.19)
== END ==
LOC: LAB 14:43
PROVIDERS: PCP Family Medicine; Referring Provider Family Medicine; Visit Provider Family Medicine
DX: E78.5 Hyperlipidemia, unspecified (principal)
CPT/HCPCS: 36415; 80053; 80061; 84439; 84443; 85025

== ENCOUNTER → 2024-12-22 11:08 | Outpatient (CLI) | payer BC, SELFPAY ==
[2024-12-23 07:10] LABS: Triiodothyronine T3 Total 151 ng/dL (71-180)
== END ==
PROVIDERS: PCP Family Medicine; Referring Provider Family Medicine; Visit Provider Family Medicine
DX: R79.89 Other specified abnormal findings of blood chemistry (principal)
CPT/HCPCS: 36415; 83520; 84480

== ENCOUNTER → 2025-02-20 09:43 | Outpatient (CLI) | payer BC, SELFPAY ==
--- NOTE | 2025-02-20 09:46 | DI.NM.S_ITS ---
PROCEDURE: NM UPTAKE AND SCAN RADIOPHARMACEUTICAL: 373 ???Ci I-123 sodium iodide by mouth. INDICATIONS: hyperthyroid TECHNIQUE: I-123 sodium iodide was administered orally. Anterior neck images were obtained, and iodine uptake by the thyroid gland calculated using marble installation helper's software. COMPARISON: None. FINDINGS: Morphology: The thyroid gland has normal morphology and uniform activity. No 'cold' or 'hot' thyroid nodules are identified. Uptake: 6 hour thyroid uptake is 14.6%; normal ranges are from 6-18%. 24 hour thyroid uptake is 25.4%; normal ranges are from 10-30%. IMPRESSION: Normal thyroid uptake as above. No active nodules are seen. Dictated by: Dominic Ulloa M.D. on 02/21/2025 at 11:24 Approved by: Dominic Ulloa M.D. on 02/21/2025 at 11:25
== END ==
PROVIDERS: PCP Family Medicine; Referring Provider Family Medicine; Visit Provider Family Medicine
DX: E05.90 Thyrotoxicosis, unspecified without thyrotoxic crisis or storm (principal)
CPT/HCPCS: 78014; A9516

== ENCOUNTER → 2025-02-21 09:45 | Outpatient (CLI) | payer BC, SELFPAY ==
--- NOTE | 2025-02-21 09:47 | DI.US.S_ITS ---
PROCEDURE: US THYROID INDICATIONS: hyperthyroid TECHNIQUE: Real-time scanning was performed of the thyroid gland, with image documentation. COMPARISON: None. FINDINGS: Thyroid: Right lobe measures 4.3 x 1.3 x 1.1 cm. Left lobe measures 4.5 x 1.1 x 1.3 cm. Isthmus is 0.2 cm thick. Echotexture is homogeneous. Small hypoechoic nodule in upper to midpole right thyroid lobe is seen and measures up to 5 x 3 mm in size which does not meet the criteria for ultrasound follow-up. Tiny 3 mm colloid cyst is seen in upper pole left thyroid lobe. IMPRESSION: No thyroid nodule that meets the criteria for ultrasound follow-up. Subcentimeter right upper to mid pole thyroid nodule and colloid cyst in upper pole left thyroid lobe as above. ACR TI-RADS definitions and recommendations: TI-RADS 1 (benign): 0 points. FNA not needed. TI-RADS 2 (not suspicious): 2 points. FNA not needed. TI-RADS 3: 3 points. * FNA if 2.5 cm or larger, follow up if 1.5 cm or larger (at 1, 3, and 5 years). TI-RADS 4: 4-6 points. * FNA if 1.5 cm or larger, follow up if 1 cm or larger (at 1, 2, 3, and 5 years). TI-RADS 5: 7 points or more. * FNA if 1 cm or larger, follow up if 0.5 cm or larger (every year for 5 years). Dictated by: Colton Pepe M.D. on 02/21/2025 at 12:24 Approved by: Colton Pepe M.D. on 02/21/2025 at 12:26
--- NOTE | 2025-02-21 09:48 | DI.MG.S_ITS ---
MM screening mammo BI: 02/21/2025. BI-RADS: 1 CLINICAL: 64-year old female for bilateral screening mammogram. Tyrer-Cuzick lifetime risk of 4.0%. No personal or first-degree family history of breast cancer. PRIOR EXAMS 09/17/2017. MAMMOGRAPHY TECHNIQUE: 2D and 3D (tomosynthesis) digital mammographic views obtained, with additional images as needed for full coverage. Current study was also evaluated with a Computer Aided Detection (CAD) system. DENSITY B. There are scattered areas of fibroglandular density. MAMMOGRAPHY FINDINGS Bilateral: No suspicious mass, asymmetry, microcalcification, or other abnormality seen. IMPRESSION: * No evidence of malignancy. RECOMMENDATIONS Bilateral * Annual screening mammography. OVERALL ASSESSMENT CATEGORY BI-RADS-1: Negative. The [employer] recommends annual screening mammography beginning at age 40 for women with average risk of breast cancer. ELECTRONICALLY SIGNED: Ophelia Her M.D. on 02/21/2025 at 03:05:28 PM PT Interpreting Station ID: [id number]
== END ==
PROVIDERS: PCP Family Medicine; Referring Provider Family Medicine; Visit Provider Family Medicine
DX: Z12.31 Encounter for screening mammogram for malignant neoplasm of breast (principal); E05.90 Thyrotoxicosis, unspecified without thyrotoxic crisis or storm
CPT/HCPCS: 76536; 77063; 77067

== ENCOUNTER → 2025-02-23 12:33 | Outpatient (CLI) | payer BC, SELFPAY | PROVIDERS: PCP Family Medicine; Referring Provider Family Medicine; Visit Provider Family Medicine | DX: E05.90 Thyrotoxicosis, unspecified without thyrotoxic crisis or storm (principal) | CPT/HCPCS: 36415; 84445 ==

== ENCOUNTER → 2025-03-09 15:55 | Outpatient (CLI) | payer BC, SELFPAY ==
[2025-03-09 19:04] LABS: Free T3, Triiodothyronine Free 3.53 pg/mL (2.77-5.27); Free T4, Direct Thyroxine 1.16 ng/dL (0.78-2.19)
[2025-03-09 19:18] LABS: Thyroid Stimulating Hormone 1.87 uIU/mL (0.47-4.68)
[2025-03-15 16:39] LABS: Triiodothyronine T3 Reverse 18.9 ng/dL (.)
== END ==
PROVIDERS: PCP Family Medicine; Referring Provider Family Medicine; Visit Provider Family Medicine
DX: E05.90 Thyrotoxicosis, unspecified without thyrotoxic crisis or storm (principal); R26.89 Other abnormalities of gait and mobility
CPT/HCPCS: 36415; 84439; 84443; 84481; 84482

== ENCOUNTER → 2025-05-30 12:56 | Outpatient (CLI) | payer BC, SELFPAY ==
[2025-05-30 14:31] LABS: TSH w/ Reflex to FT4 1.97 uIU/mL (0.47-4.68)
== END ==
PROVIDERS: PCP Family Medicine; Referring Provider Family Medicine; Visit Provider Family Medicine
DX: E05.90 Thyrotoxicosis, unspecified without thyrotoxic crisis or storm (principal)
CPT/HCPCS: 36415; 84443